=== PATIENT | female | born 1950 | race Caucasian/White ===

== ENCOUNTER 2024-04-02 00:56 | Emergency (ER) | payer MEDICARE ==
[~2024-04-02] VITALS: Ht 162.6 cm; Wt 89.8 kg
[2024-04-02 01:01] VITALS: BP 144/76; PULSE 84; RESP 16; TEMP 97.3; O2SAT 98
[2024-04-02 01:40] VITALS: BP 144/76; PULSE 84; RESP 16; TEMP 97.3; O2SAT 98
[2024-04-02] MEDS ORDERED: ACETAMINOPHEN EXTRA STRENGTH 500 MG TAB ONE (02:56)
[2024-04-02] MEDS: ACETAMINOPHEN EXTRA STRENGTH 500 MG TAB PO ONE (02:59)
== END 2024-04-02 04:48 | disposition home or self-care (01) ==
LOC: MED 00:56
DX: S80.01XA Contusion of right knee, initial encounter (principal); S00.83XA Contusion of other part of head, initial encounter; E11.9 Type 2 diabetes mellitus without complications; I10 Essential (primary) hypertension; Z86.711 Personal history of pulmonary embolism; Z98.890 Other specified postprocedural states; W06.XXXA Fall from bed, initial encounter; Y93.89 Activity, other specified; Y92.89 Other specified places as the place of occurrence of the external cause; Y99.8 Other external cause status
CPT/HCPCS: 70450; 72125; 73560; 99284